=== PATIENT | male | born 1980 | race Caucasian/White ===

== ENCOUNTER 2019-03-28 18:01 | Emergency (ER) | payer OTHER ==
--- NOTE | 2019-03-28 18:24 | EDM.PDOC ---
ED HPI GENERAL MEDICAL PROBLEM - General Stated Complaint: STOMACH PAIN Time Seen by Provider: 03/28/19 18:14 Source of Information: Reports: Patient History Limitations: Reports: No Limitations - History of Present Illness INITIAL COMMENTS - FREE TEXT/NARRATIVE: 38-year-old male who reports onset of central, lower chest and right upper quadrant pain beginning an approximate 4 PM that has gradually worsened to a 10/ 10 level pain. There is radiation of this pain to his right mid back. The pain is worse when he takes a deep breath in his right upper quadrant. He has had nausea with multiple dry heaving's. The pain is a burning and agonizing type pain. Nothing seems to make the pain better. He has no shortness of breath with this. There is diaphoresis associated with this. No neck or jaw pain or arm pain. The pain came on at rest. He had a similar episode of this pain on 2018. He tells me that the pain was exactly like the pain he is having today. The pain lasted for approximately 10 hours and resolved on its own. He has been eating and drinking normally. No fevers. No cough. No problems urinating. There are no other associated signs or symptoms. There are no other modifying factors. 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 ED ROS GENERAL - Review of Systems Review Of Systems: See Below Constitutional: Reports: Diaphoresis HEENT: Reports: No Symptoms Respiratory: Reports: No Symptoms Cardiovascular: Reports: Chest Pain (Central, lower) GI/Abdominal: Reports: Abdominal Pain (Right upper quadrant and epigastrium), Nausea, Vomiting : Reports: No Symptoms Musculoskeletal: Reports: Back Pain (Pain radiates to his right mid back.) Skin: Reports: Diaphoresis Neurological: Reports: No Symptoms Hematologic/Lymphatic: Reports: No Symptoms Immunologic: Reports: No Symptoms ED EXAM, GENERAL - Physical Exam Exam: See Below Exam Limited By: No Limitations General Appearance: Alert, WD/WN, Moderate Distress (to severe, secondary to pain) Eye Exam: Bilateral Eye: EOMI, Normal Inspection, PERRL Ears: Normal External Exam Ear Exam: Bilateral Ear: Auricle Normal Nose: Normal Inspection, Normal Mucosa, No Blood Throat/Mouth: Normal Lips, Normal Voice, No Airway Compromise, Other (Somewhat dry mucous membranes) Head: Atraumatic, Normocephalic Neck: Normal Inspection, Supple Respiratory/Chest: No Respiratory Distress, Lungs Clear, Normal Breath Sounds, No Accessory Muscle Use, Chest Non-Tender Cardiovascular: Normal Peripheral Pulses, Regular Rate, Rhythm, No JVD Peripheral Pulses: 2+: Radial (L), Radial (R) GI/Abdominal: Soft, No Mass, Distended (Mildly), Guarding (Some voluntary guarding in the right upper quadrant), Tender (And right upper quadrant and epigastrium), Abnormal Bowel Sounds (Diminished bowel sounds) Back Exam: Normal Inspection Extremities: Normal Inspection, Normal Range of Motion, Non-Tender, No Pedal Edema, Normal Capillary Refill Neurological: Alert, Oriented, CN II-XII Intact, Normal Cognition, No Motor/ Sensory Deficits Skin Exam: Warm, Intact, Normal Color, No Rash, Diaphoretic (Mildly) EKG INTERPRETATION EKG Date: 03/28/19 Time: 18:16 Rhythm: NSR Rate (Beats/Min): 51 [place]: Normal P-Wave: Present QRS: Normal ST-T: Other (Mental ST segment elevation in multiple leads, probable early repolarization) QT: Prolonged (Slightly prolonged) Comparison: NA - No Prior EKG EKG Interpretation Comments: Repeat EKG performed at 6:49 PM secondary to ongoing pain showed a sinus rhythm with a rate of 45. There is really no change from the previous EKG. There is no acute injury or ischemic pattern present. Course - Vital Signs Last Recorded V/S: Last Vital Signs Temp 37.1 C 03/28/19 18:05 Pulse 50 L 03/28/19 18:05 Resp 18 03/28/19 18:05 BP 162/104 H 03/28/19 18:05 Pulse Ox 100 03/28/19 18:05 - Orders/Labs/Meds Orders: Active Orders 24 hr Category Date Time Status EKG Documentation Completion [RC] ASDIRECTED Care 03/28/19 18:25 Active EKG Documentation Completion [RC] ASDIRECTED Care 03/28/19 18:40 Active Sodium Chloride 0.9% [Saline Flush] Med 03/28/19 18:24 Active 10 ml FLUSH ASDIRECTED PRN Peripheral IV Insertion Adult [OM.PC] Routine Oth 03/28/19 18:24 Ordered EKG 12 Lead [EK] Routine Ther 03/28/19 18:24 Ordered EKG 12 Lead [EK] Routine Ther 03/28/19 18:39 Ordered Medication Orders Sodium Chloride (Saline Flush) 10 ml FLUSH ASDIRECTED PRN PRN Reason: Keep Vein Open Last Admin: 03/28/19 19:01 Dose: 10 ml Admin: 03/28/19 18:44 Dose: 10 ml Labs: Laboratory Tests 03/28/19 03/28/19 03/28/19 Range/Units 18:35 18:35 18:35 WBC 9.5 (4.5-12.0) X10-3/uL RBC 5.69 (4.30-5.75) x10(6)uL Hgb 16.6 (13.5-17.8) g/dL Hct 48.5 (30.0-51.3) % MCV 85.1 (80-96) fL MCH 29.2 (27.7-33.6) pg MCHC 34.3 (32.2-35.4) g/dL RDW 11.9 (11.5-15.5) % Plt Count 246 (125-369) X10(3)uL MPV 8.2 (7.4-10.4) fL Neut % (Auto) 69.1 (46-82) % Lymph % (Auto) 23.3 (13-37) % [place] % (Auto) 6.1 (4-12) % Eos % (Auto) 1 (1.0-5.0) % Baso % (Auto) 0 (0-2) % Neut # (Auto) 6.6 (1.6-8.3) # Lymph # (Auto) 2.2 (0.6-5.0) # [place] # (Auto) 0.6 (0.0-1.3) # Eos # (Auto) 0.1 (0.0-0.8) # Baso # (Auto) 0.0 (0.0-0.2) # Sodium 141 (135-145) mmol/L Potassium 4.7 (3.5-5.3) mmol/L Chloride 104 (100-110) mmol/L Carbon Dioxide 31 (21-32) mmol/L BUN 17 (7-18) mg/dL Creatinine 1.1 (0.70-1.30) mg/dL Est Cr Clr Drug Dosing TNP Estimated GFR (MDRD) > 60 (>60) BUN/Creatinine Ratio 15.5 (9-20) Glucose 145 H (80-116) mg/dL Calcium 9.1 (8.6-10.2) mg/dL Total Bilirubin 0.4 (0.1-1.3) mg/dL AST 18 (5-25) IU/L ALT 55 H (12-36) U/L Alkaline Phosphatase 77 (56-112) IU/L Troponin I < 0.017 L (<0.017-0.056) ng/mL Total Protein 7.2 (6.0-8.0) g/dL Albumin 3.8 (3.5-5.2) g/dL Globulin 3.4 g/dL Albumin/Globulin Ratio 1.1 Amylase 45 (25-115) U/L 03/28/19 Range/Units 20:50 WBC (4.5-12.0) X10-3/uL RBC (4.30-5.75) x10(6)uL Hgb (13.5-17.8) g/dL Hct (30.0-51.3) % MCV (80-96) fL MCH (27.7-33.6) pg MCHC (32.2-35.4) g/dL RDW (11.5-15.5) % Plt Count (125-369) X10(3)uL MPV (7.4-10.4) fL Neut % (Auto) (46-82) % Lymph % (Auto) (13-37) % [place] % (Auto) (4-12) % Eos % (Auto) (1.0-5.0) % Baso % (Auto) (0-2) % Neut # (Auto) (1.6-8.3) # Lymph # (Auto) (0.6-5.0) # [place] # (Auto) (0.0-1.3) # Eos # (Auto) (0.0-0.8) # Baso # (Auto) (0.0-0.2) # Sodium (135-145) mmol/L Potassium (3.5-5.3) mmol/L Chloride (100-110) mmol/L Carbon Dioxide (21-32) mmol/L BUN (7-18) mg/dL Creatinine (0.70-1.30) mg/dL Est Cr Clr Drug Dosing Estimated GFR (MDRD) (>60) BUN/Creatinine Ratio (9-20) Glucose (80-116) mg/dL Calcium (8.6-10.2) mg/dL Total Bilirubin (0.1-1.3) mg/dL AST (5-25) IU/L ALT (12-36) U/L Alkaline Phosphatase (56-112) IU/L Troponin I < 0.017 L (<0.017-0.056) ng/mL Total Protein (6.0-8.0) g/dL Albumin (3.5-5.2) g/dL Globulin g/dL Albumin/Globulin Ratio Amylase (25-115) U/L Meds: Medications Generic Name Dose Route Start Last Admin Trade Name Freq PRN Reason Stop Dose Admin Sodium Chloride 10 ml 03/28/19 18:24 03/28/19 19:01 Saline Flush FLUSH 10 ml ASDIRECTED PRN Administration Keep Vein Open Discontinued Medications Generic Name Dose Route Start Last Admin Trade Name Freq PRN Reason Stop Dose Admin Hydromorphone HCl 1 mg 03/28/19 18:49 03/28/19 18:56 Dilaudid IVPUSH 03/28/19 18:50 1 mg ONETIME ONE Administration Sodium Chloride 1,000 mls @ 999 mls/hr 03/28/19 18:26 03/28/19 18:46 Normal Saline IV 03/28/19 19:26 999 mls/hr .BOLUS ONE Administration Ketorolac Tromethamine 30 mg 03/28/19 19:21 03/28/19 19:33 Toradol IVPUSH 03/28/19 19:22 30 mg ONETIME ONE Administration Morphine Sulfate 4 mg 03/28/19 18:26 03/28/19 18:35 Morphine IVPUSH 03/28/19 18:27 4 mg ONETIME ONE Administration Ondansetron HCl 4 mg 03/28/19 18:26 03/28/19 18:39 Zofran IVPUSH 03/28/19 18:27 4 mg ONETIME ONE Administration - Re-Assessments/Exams Free Text/Narrative Re-Assessment/Exam: 03/28/19 18:35: Patient has received morphine 4 mg IV but continues with severe pain in his lower chest and right upper quadrant going to his back. I will repeat his EKG at this point. I will also give the patient Dilaudid 1 mg IV. 03/28/19 19:22: Patient's laboratory tests are reassuringly normal. Repeat EKG showed no change from previous and no STEMI or ischemic pattern. Patient's pain is improved, but still has some waxing and waning worsening. I will give the patient Toradol 30 mg IV. 03/28/19 20:22: Patient's pain is completely gone. He feels markedly improved. I feel this is most probably biliary colic. I will however repeat his troponin at 8:45 PM for a 2 hour troponin. If this troponin is negative, I will plan on discharging the patient and refer him to Danni John NP to get additional outpatient workup into biliary disease. The patient is in agreement with this plan. 03/28/19 21:32: Repeat troponin was negative. The patient remains pain-free. Plan will be discharge as above with follow-up as above. Departure - Departure Time of Disposition: 21:35 Disposition: Home, Self-Care 01 Condition: Good (Improved) Clinical Impression: Biliary colic, Mid back pain on right side Abdominal pain Qualifiers: Abdominal location: right upper quadrant Qualified Code(s): R10.11 - Right upper quadrant pain Chest pain Qualifiers: Chest pain type: unspecified Qualified Code(s): R07.9 - Chest pain, unspecified Instructions: Abdominal Pain, Adult, [id number], Nonspecific Chest Pain, Easy -to-Read, Biliary Colic, Adult Referrals: PCP,None [Primary Care Provider] - Additional Instructions: Your blood tests were reassuringly normal, including a repeat heart enzyme test. Your EKGs showed no evidence of a heart attack. Your symptoms are consistent with a gallbladder attack as we discussed. It is possible that this could be acid reflux. I have referred you to Danni John NP and they should call you the beginning of this week for an appointment and you will need further outpatient testing including a gallbladder ultrasound. For now, you should avoid any fatty foods. Plenty of fluids. Back to the emergency department for recurrent/unrelenting pain, vomiting, fever or any other concerning sign or symptom. - My Orders Last 24 Hours: My Active Orders 03/28/19 18:24 Sodium Chloride 0.9% [Saline Flush] 10 ml FLUSH ASDIRECTED PRN Peripheral IV Insertion Adult [OM.PC] Routine EKG 12 Lead [EK] Routine 03/28/19 18:25 EKG Documentation Completion [RC] ASDIRECTED 03/28/19 18:39 EKG 12 Lead [EK] Routine 03/28/19 18:40 EKG Documentation Completion [RC] ASDIRECTED - Assessment/Plan Last 24 Hours: My Active Orders 03/28/19 18:24 Sodium Chloride 0.9% [Saline Flush] 10 ml FLUSH ASDIRECTED PRN Peripheral IV Insertion Adult [OM.PC] Routine EKG 12 Lead [EK] Routine 03/28/19 18:25 EKG Documentation Completion [RC] ASDIRECTED 03/28/19 18:39 EKG 12 Lead [EK] Routine 03/28/19 18:40 EKG Documentation Completion [RC] ASDIRECTED
[2019-03-28] MEDS ORDERED: Morphine 4 MG/ML Syringe IVPUSH ONE (18:26)
[2019-03-28] MEDS ORDERED: Sodium Chloride 0.9% 1,000 ML IV ONE (18:26)
[2019-03-28] MEDS ORDERED: Ondansetron 4 MG/2 ML SDV IVPUSH ONE (18:26)
[2019-03-28] MEDS: Sodium Chloride 0.9% 10 ML Syringe FLUSH PRN ×2 (18:44→19:01)
[2019-03-28] MEDS ORDERED: HYDROmorphone 2 MG/ML SDV IVPUSH ONE (18:49)
[2019-03-28] MEDS ORDERED: Ketorolac 30 MG/ML SDV IVPUSH ONE (19:21)
== END 2019-03-28 22:00 | disposition home or self-care (01) ==
LOC: FB.ED 18:01
DX: K80.50 Calculus of bile duct without cholangitis or cholecystitis without obstruction (principal); M54.6 Pain in thoracic spine; R07.9 Chest pain, unspecified; F17.200 Nicotine dependence, unspecified, uncomplicated
CPT/HCPCS: 36415; 80053; 82150; 84484; 85025; 93005; 96361; 96374; 96375; 99285; J1170; J1885; J2270; J2405; J7030; 93010; 99284

== ENCOUNTER 2019-11-16 06:04 | Emergency (ER) | payer SELFPAY ==
[2019-11-16] MEDS ORDERED: Morphine 2 MG/ML Syringe IVPUSH ONE (06:49)
[2019-11-16] MEDS ORDERED: Sodium Chloride 0.9% 1,000 ML IV SCH (07:00)
--- NOTE | 2019-11-16 07:05 | EDM.PDOC ---
ED HPI GENERAL MEDICAL PROBLEM - General Chief Complaint: Gastrointestinal Problem Stated Complaint: gallbladder attack Time Seen by Provider: 11/16/19 06:30 Source of Information: Reports: Patient, Family History Limitations: Reports: No Limitations - History of Present Illness INITIAL COMMENTS - FREE TEXT/NARRATIVE: states he woke about 1a mwith pain inthe RUW , very s melanie r , mike=idates to the back Onset: Today Onset Date: 11/16/19 Onset Time: 01:00 Duration: Getting Worse, Improving, Waxing/Waning Location: Reports: Abdomen (RUQ) Quality: Reports: Ache, Dull Severity: Moderate Improves with: Reports: Heat Therapy Worsens with: Reports: Eating, Movement Associated Symptoms: Reports: Loss of Appetite, Malaise, Nausea/Vomiting. Denies: Fever/Chills RUQ abd pain Pain Score (Numeric/FACES): 9 - Related Data Allergies Allergy/AdvReac Type Severity Reaction Status Date / Time No Known Allergies Allergy Verified 11/16/19 06:26 Home Meds: Home Meds Levofloxacin [Levaquin] 500 mg PO BIDPC #7 tablet 11/16/19 [Rx] Past Medical History - Past Health History Medical/Surgical History: Denies Medical/Surgical History Gastrointestinal History: Reports: Other (See Below) Other Gastrointestinal History: gallbladder attack - Past Surgical History Musculoskeletal Surgical History: Reports: Arthroscopic Knee Social & Family History - Family History Family Medical History: Noncontributory Cardiac: Reports: Other (See Below) Other Cardiac Family History: grandmother had a triple bypass - Tobacco Use Smoking Status *Q: Current Every Day Smoker Years of Tobacco use: 6 Packs/Tins Daily: 0.2 - Caffeine Use Caffeine Use: Reports: Soda - Recreational Drug Use Recreational Drug Use: No - Living Situation & Occupation 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 Constitutional: Reports: Weakness. Denies: Fever, Chills HEENT: Reports: No Symptoms Respiratory: Reports: No Symptoms Cardiovascular: Reports: No Symptoms Endocrine: Reports: No Symptoms GI/Abdominal: Reports: Anorexia, Decreased Appetite, Distension, Nausea. Denies : Vomiting Musculoskeletal: Reports: Back Pain (right sided) Skin: Reports: No Symptoms Neurological: Reports: No Symptoms Psychiatric: Denies: Anxiety Hematologic/Lymphatic: Reports: No Symptoms ED EXAM, GI/ABD - Physical Exam Exam: See Below Exam Limited By: No Limitations General Appearance: Alert, WD/WN, Moderate Distress (in obvious pain ) Eyes: Bilateral: EOMI Throat/Mouth: Normal Oropharynx Head: Atraumatic, Normocephalic Neck: Supple, Non-Tender, Full Range of Motion Respiratory/Chest: Lungs Clear, Normal Breath Sounds Cardiovascular: Regular Rate, Rhythm, No Edema GI/Abdominal Exam: Soft, Guarding (RUQ), Tender, Abnormal Bowel Sounds ( hypoactive), Other (positive Dupont's sign). No: Hepatomegaly, Splenomegaly Back Exam: CVA Tenderness (R) Extremities: Normal Range of Motion Neurological: Alert, Oriented, No Motor/Sensory Deficits Psychiatric: Normal Affect Skin Exam: Warm Course - Vital Signs Last Recorded V/S: Last Vital Signs Temp 36.6 C 11/16/19 07:49 Pulse 84 11/16/19 07:49 Resp 16 11/16/19 07:49 BP 137/88 11/16/19 07:49 Pulse Ox 99 11/16/19 07:49 - Orders/Labs/Meds Orders: Active Orders 24 hr Category Date Time Status Abdomen Ltd [US] Stat Exams 11/16/19 06:49 Taken Levofloxacin/Dextrose 5%-Water [Levaquin in D5W 500 MG/ Med 11/16/19 08:18 Active 100 ML] 500 mg Premix Bag 1 bag IV ONETIME Sodium Chloride 0.9% [Normal Saline] 1,000 ml Med 11/16/19 07:00 Active IV ASDIRECTED Medication Orders Sodium Chloride (Normal Saline) 1,000 mls @ 999 mls/hr IV ASDIRECTED JOSE Last Admin: 11/16/19 07:28 Dose: 999 mls/hr Levofloxacin/Dextrose 500 mg/ (Premix) 100 mls @ 100 mls/hr IV ONETIME ONE Stop: 11/16/19 09:17 Last Admin: 11/16/19 08:21 Dose: 100 mls/hr Labs: Laboratory Tests 11/16/19 11/16/19 11/16/19 Range/Units 07:05 07:05 07:05 WBC 10.9 (4.5-12.0) X10-3/uL RBC 5.54 (4.30-5.75) x10(6)uL Hgb 16.0 (13.5-17.8) g/dL Hct 46.7 (30.0-51.3) % MCV 84.3 (80-96) fL MCH 29.0 (27.7-33.6) pg MCHC 34.4 (32.2-35.4) g/dL RDW 12.0 (11.5-15.5) % Plt Count 261 (125-369) X10(3)uL MPV 8.4 (7.4-10.4) fL Neut % (Auto) 82.7 H (46-82) % Lymph % (Auto) 12.0 L (13-37) % [place] % (Auto) 3.7 L (4-12) % Eos % (Auto) 1 (1.0-5.0) % Baso % (Auto) 1 (0-2) % Neut # (Auto) 9.0 H (1.6-8.3) # Lymph # (Auto) 1.3 (0.6-5.0) # [place] # (Auto) 0.4 (0.0-1.3) # Eos # (Auto) 0.1 (0.0-0.8) # Baso # (Auto) 0.1 (0.0-0.2) # Sodium 140 (135-145) mmol/L Potassium 4.8 (3.5-5.3) mmol/L Chloride 103 (100-110) mmol/L Carbon Dioxide 32 (21-32) mmol/L BUN 13 (7-18) mg/dL Creatinine 1.0 (0.70-1.30) mg/dL Est Cr Clr Drug Dosing 102.40 mL/min Estimated GFR (MDRD) > 60 (>60) BUN/Creatinine Ratio 13.0 (9-20) Glucose 115 (80-116) mg/dL Calcium 9.1 (8.6-10.2) mg/dL Total Bilirubin 0.4 (0.1-1.3) mg/dL AST 26 H D (5-25) IU/L ALT 65 H D (12-36) U/L Alkaline Phosphatase 76 (56-112) IU/L C-Reactive Protein < 0.2 L (0.5-0.9) mg/dL Total Protein 7.6 (6.0-8.0) g/dL Albumin 3.9 (3.5-5.2) g/dL Globulin 3.7 g/dL Albumin/Globulin Ratio 1.1 Urine Color (YELLOW) Urine Appearance (CLEAR) Urine pH (5.0-6.5) Ur Specific [place] (1.010-1.025) Urine Protein (NEGATIVE) mg/dL Urine Glucose (UA) (NORMAL) mg/dL Urine Ketones (NEGATIVE) mg/dL Urine Occult Blood (NEGATIVE) Urine Nitrite (NEGATIVE) Urine Bilirubin (NEGATIVE) Urine Urobilinogen (NEGATIVE) mg/dL Ur Leukocyte Esterase (NEGATIVE) Urine WBC (0-5) Ur Squamous Epith Cells (NS,R,O) Amorphous Sediment Urine Bacteria (NS) 11/16/19 Range/Units 08:33 WBC (4.5-12.0) X10-3/uL RBC (4.30-5.75) x10(6)uL Hgb (13.5-17.8) g/dL Hct (30.0-51.3) % MCV (80-96) fL MCH (27.7-33.6) pg MCHC (32.2-35.4) g/dL RDW (11.5-15.5) % Plt Count (125-369) X10(3)uL MPV (7.4-10.4) fL Neut % (Auto) (46-82) % Lymph % (Auto) (13-37) % [place] % (Auto) (4-12) % Eos % (Auto) (1.0-5.0) % Baso % (Auto) (0-2) % Neut # (Auto) (1.6-8.3) # Lymph # (Auto) (0.6-5.0) # [place] # (Auto) (0.0-1.3) # Eos # (Auto) (0.0-0.8) # Baso # (Auto) (0.0-0.2) # Sodium (135-145) mmol/L Potassium (3.5-5.3) mmol/L Chloride (100-110) mmol/L Carbon Dioxide (21-32) mmol/L BUN (7-18) mg/dL Creatinine (0.70-1.30) mg/dL Est Cr Clr Drug Dosing mL/min Estimated GFR (MDRD) (>60) BUN/Creatinine Ratio (9-20) Glucose (80-116) mg/dL Calcium (8.6-10.2) mg/dL Total Bilirubin (0.1-1.3) mg/dL AST (5-25) IU/L ALT (12-36) U/L Alkaline Phosphatase (56-112) IU/L C-Reactive Protein (0.5-0.9) mg/dL Total Protein (6.0-8.0) g/dL Albumin (3.5-5.2) g/dL Globulin g/dL Albumin/Globulin Ratio Urine Color Yellow (YELLOW) Urine Appearance Cloudy (CLEAR) Urine pH 7.0 H (5.0-6.5) Ur Specific [place] 1.020 (1.010-1.025) Urine Protein Negative (NEGATIVE) mg/dL Urine Glucose (UA) Normal (NORMAL) mg/dL Urine Ketones Negative (NEGATIVE) mg/dL Urine Occult Blood Negative (NEGATIVE) Urine Nitrite Negative (NEGATIVE) Urine Bilirubin Negative (NEGATIVE) Urine Urobilinogen Normal (NEGATIVE) mg/dL Ur Leukocyte Esterase Negative (NEGATIVE) Urine WBC 0-5 (0-5) Ur Squamous Epith Cells Few H (NS,R,O) Amorphous Sediment Many Urine Bacteria Few H (NS) Meds: Medications Generic Name Dose Route Start Last Admin Trade Name Freq PRN Reason Stop Dose Admin Sodium Chloride 1,000 mls @ 999 mls/hr 11/16/19 07:00 11/16/19 07:28 Normal Saline IV 999 mls/hr ASDIRECTED JOSE Administration Levofloxacin/Dextrose 500 mg/ 100 mls @ 100 mls/hr 11/16/19 08:18 11/16/19 08 :21 Premix IV 11/16/19 09:17 100 mls/hr ONETIME ONE Administration Discontinued Medications Generic Name Dose Route Start Last Admin Trade Name Freq PRN Reason Stop Dose Admin Morphine Sulfate 4 mg 11/16/19 06:49 11/16/19 07:29 Morphine IVPUSH 11/16/19 06:50 4 mg ONETIME ONE Administration - Re-Assessments/Exams Free Text/Narrative Re-Assessment/Exam: 11/16/19 07:20 pt given fluids , morphine will need to do ultrasound 11/16/19 08:59 Ultrasound indicates stone in the gallbladder ? blockage of the duct. Given a dose of levaquin will FU with surgeon for evaluation of gallbladder removal if recurrent pain persists Departure - Departure Time of Disposition: 09:05 Disposition: Home, Self-Care 01 Condition: Fair Clinical Impression: RUQ pain, Gall bladder stones, Cholelithiasis and acute cholecystitis without obstruction, Cholecystitis, Cholelithiasis without obstruction - Discharge Information *PRESCRIPTION DRUG MONITORING PROGRAM REVIEWED*: Not Applicable *COPY OF PRESCRIPTION DRUG MONITORING REPORT IN PATIENT LEANA: Not Applicable Instructions: Cholecystitis, [id number], Gallbladder Eating Plan, Cholelithiasis, [id number], Biliary Colic, Adult Referrals: PCP,None [Primary Care Provider] - Forms: ED Department Discharge Additional Instructions: Ok to make appt to see Surgeon for further evaluation Sepsis Event Note - Evaluation Sepsis Screening Result: No Definite Risk - Focused Exam Vital Signs: Vital Signs Temp Pulse Resp BP Pulse Ox 11/16/19 07:49 36.6 C 84 16 137/88 99 11/16/19 06:15 36.4 C 57 L 15 132/90 100 Date Exam was Performed: 11/16/19 Time Exam was Performed: 08:59 - My Orders Last 24 Hours: My Active Orders 11/16/19 06:49 Abdomen Ltd [US] Stat 11/16/19 07:00 Sodium Chloride 0.9% [Normal Saline] 1,000 ml IV ASDIRECTED 11/16/19 08:18 Levofloxacin/Dextrose 5%-Water [Levaquin in D5W 500 MG/100 ML] 500 mg Premix Bag 1 bag IV ONETIME - Assessment/Plan Last 24 Hours: My Active Orders 11/16/19 06:49 Abdomen Ltd [US] Stat 11/16/19 07:00 Sodium Chloride 0.9% [Normal Saline] 1,000 ml IV ASDIRECTED 11/16/19 08:18 Levofloxacin/Dextrose 5%-Water [Levaquin in D5W 500 MG/100 ML] 500 mg Premix Bag 1 bag IV ONETIME
[2019-11-16] MEDS ORDERED: Levofloxacin/Dextrose 5%-Water 500 MG in Premix Bag 1 BAG IV ONE (08:18)
--- NOTE | 2019-11-16 10:32 | US ---
INDICATION: Right upper quadrant pain. RIGHT UPPER QUADRANT/GALLBLADDER ULTRASOUND: Multiple ultrasonic images were obtained with 2D real-time spectral analysis and color flow imaging 11/16/2019 - no comparisons. The IVC was phasic. The gallbladder is somewhat distended in appearance but not grossly enlarged, measuring 8.6 x 4.3 x 3.7 cm, and includes a movable 2 cm calculus. No wall thickening or pericholecystic fluid was present, however, there was a very positive ultrasonic Dupont's sign at a level of 10/10. Common bile duct was normal in caliber at 5 mm. The liver is echogenic compatible with fatty liver. No definite focal lesions were demonstrated in the liver. The liver measured 13.5 cm. The pancreas was not adequately visualized due to intestinal gas. The right kidney measured 12.6 x 7.5 x 6.5 cm and appeared normal. IMPRESSION: 1. Cholelithiasis with distended appearing gallbladder and very positive ultrasonic Dupont's sign suggests possibility of cholecystitis and should be correlated clinically. 2. Pancreas not adequately visualized. 3. Fatty liver. MTDD
== END 2019-11-16 09:36 | disposition home or self-care (01) ==
LOC: FB.ED 06:04
DX: K80.00 Calculus of gallbladder with acute cholecystitis without obstruction (principal); F17.210 Nicotine dependence, cigarettes, uncomplicated
CPT/HCPCS: 36415; 76705; 80053; 81001; 85025; 86140; 96361; 96365; 96375; 99282; 99284-25; J1956; J2270; J7030